=== PATIENT | male | born 2000 | race Caucasian/White ===

== ENCOUNTER 2022-07-20 20:38 | Outpatient (CLI) | payer OTHER | END 2022-07-20 23:59 | disposition critical access hospital (66) | LOC: EMS 20:38 | DX: R53.1 Weakness (principal); R11.2 Nausea with vomiting, unspecified; T46.4X2A Poisoning by angiotensin-converting-enzyme inhibitors, intentional self-harm, initial encounter | CPT/HCPCS: A0425; A0427 ==

== ENCOUNTER 2022-07-20 20:58 | Emergency (ER) | payer OTHER ==
[2022-07-20] MEDS ORDERED: SODIUM CHLORIDE 0.9% 1,000 ML IV STA (21:08)
--- NOTE | 2022-07-20 21:11 | ED Physician Documentation ---
History of Present Illness - Stated complaint Stated Complaint: OD - History obtained from History obtained from: Patient, EMS - Additonal information Additional information: 22yM with ph adhd, Polycystic kidney disease, presents with attempted overdose at 8 PM tonight of 78 tablets of 10 mg lisinopril. On EMS arrival patient was vomiting and had SBP in the 70s with heart rate in the 50s. He responded to 500 ucg Epinephrine and 500 L of IV fluids with resolution of hypotension en route. on arrival to ed patient states he doesn't want to live. when asked if he was trying to kill himself he states "I guess". contracts for safety in the ED. denies HI/AVH. Note patient states he missed an appointment this morning for mental health and voices concerns about this. He has outpatient mental health appointment this wednesday with to discuss starting antidepressant. PD PAST MEDICAL HISTORY - Present Medications Home Medications: Ambulatory Orders Medication Instructions Recorded Confirmed Lisinopril [Zestril] 10 mg ORAL 1-2XD 07/20/22 07/20/22 - Allergies Allergies/Adverse Reactions: Allergies Allergy/AdvReac Type Severity Reaction Status Date / Time No Known Drug Allergies Allergy Verified 07/20/22 21:18 PD ED PE NORMAL - Vitals Vital signs reviewed: Yes - General General: Alert and oriented X 3, No acute distress, Well developed/nourished - HEENT HEENT: Atraumatic, PERRL, EOMI - Neck Neck: Supple, no meningeal sign - Cardiac Cardiac: RRR - Respiratory Respiratory: No respiratory distress, Clear bilaterally - Abdomen Abdomen: Non tender, Non distended - Derm Derm: Normal color, Warm and dry Results - Vitals Vitals: Vital Signs - 24 hr 07/20/22 07/20/22 07/20/22 21:03 21:19 21:33 Temperature 36.8 C Heart Rate 72 73 69 Respiratory 18 18 20 Rate Blood Pressure 153/89 H 153/89 H 132/83 H O2 Saturation 100 100 100 07/20/22 07/20/22 07/20/22 21:46 22:14 22:30 Temperature Heart Rate 67 69 74 Respiratory 12 12 14 Rate Blood Pressure 132/81 H 135/93 H 156/94 H O2 Saturation 100 100 100 07/20/22 07/20/22 07/21/22 23:06 23:30 00:00 Temperature Heart Rate 69 71 63 Respiratory 17 18 16 Rate Blood Pressure 142/96 H 154/85 H 129/61 O2 Saturation 100 97 97 07/21/22 07/21/22 07/21/22 00:30 01:00 02:00 Temperature Heart Rate 60 68 55 L Respiratory 16 20 16 Rate Blood Pressure 127/71 126/69 122/61 O2 Saturation 96 98 98 07/21/22 07/21/22 07/21/22 02:30 03:00 03:30 Temperature Heart Rate 54 L 50 L 50 L Respiratory 16 16 16 Rate Blood Pressure 126/72 119/67 120/67 O2 Saturation 98 99 99 07/21/22 07/21/22 07/21/22 04:00 04:30 05:00 Temperature Heart Rate 51 L 50 L 51 L Respiratory 16 18 16 Rate Blood Pressure 125/64 125/64 120/61 O2 Saturation 98 98 99 07/21/22 07/21/22 07/21/22 05:30 06:00 06:30 Temperature Heart Rate 51 L 51 L 63 Respiratory 16 16 16 Rate Blood Pressure 120/69 117/60 123/77 O2 Saturation 99 98 98 Oxygen O2 Source Room air - Labs Labs: Laboratory Tests 07/20/22 07/20/22 07/20/22 21:02 21:02 21:02 WBC 7.1 RBC 5.00 Hgb 14.9 Hct 43.6 MCV 87.2 MCH 29.8 MCHC 34.2 RDW 12.8 Plt Count 213 MPV 11.0 Neut # (Auto) 3.9 Lymph # (Auto) 2.4 Stanley # (Auto) 0.3 Eos # (Auto) 0.4 Baso # (Auto) 0.1 Absolute Nucleated RBC 0.00 Nucleated RBC % 0.0 Sodium 139 Potassium 3.2 L Chloride 106 Carbon Dioxide 26 Anion Gap 7.0 BUN 14 Creatinine 1.0 Estimated GFR (MDRD) 94 Glucose 138 H Calcium 8.4 L Total Bilirubin 1.3 H AST 15 ALT 12 Alkaline Phosphatase 49 Total Protein 7.0 Albumin 4.0 Globulin 3.0 Albumin/Globulin Ratio 1.3 Lipase 25 TSH 2.27 Urine Color Urine Clarity Urine pH Ur Specific [place] Urine Protein Urine Glucose (UA) Urine Ketones Urine Occult Blood Urine Nitrite Urine Bilirubin Urine Urobilinogen Ur Leukocyte Esterase Urine RBC Urine WBC Ur Squamous Epith Cells Urine Bacteria Ur Microscopic Review Urine Culture Comments Salicylates < 6.0 Urine Opiates Screen Ur Oxycodone Screen Urine Methadone Screen Ur Propoxyphene Screen Acetaminophen < 10 L Ur Barbiturates Screen Ur Tricyclics Screen Ur Phencyclidine Scrn Ur Amphetamine Screen U Methamphetamines Scrn U Benzodiazepines Scrn Urine Cocaine Screen U Cannabinoids Screen Ethyl Alcohol < 5.0 SARS-CoV-2 (PCR) 07/20/22 07/20/22 21:20 21:33 WBC RBC Hgb Hct MCV MCH MCHC RDW Plt Count MPV Neut # (Auto) Lymph # (Auto) Stanley # (Auto) Eos # (Auto) Baso # (Auto) Absolute Nucleated RBC Nucleated RBC % Sodium Potassium Chloride Carbon Dioxide Anion Gap BUN Creatinine Estimated GFR (MDRD) Glucose Calcium Total Bilirubin AST ALT Alkaline Phosphatase Total Protein Albumin Globulin Albumin/Globulin Ratio Lipase TSH Urine Color YELLOW Urine Clarity CLEAR Urine pH 7.0 Ur Specific [place] 1.015 Urine Protein 100 H Urine Glucose (UA) NEGATIVE Urine Ketones NEGATIVE Urine Occult Blood TRACE-INTA Urine Nitrite NEGATIVE Urine Bilirubin NEGATIVE Urine Urobilinogen 1 (NORMAL) Ur Leukocyte Esterase NEGATIVE Urine RBC 6-10 H Urine WBC 0-3 Ur Squamous Epith Cells RARE Squamous Urine Bacteria None Seen Ur Microscopic Review INDICATED Urine Culture Comments NOT INDICATED Salicylates Urine Opiates Screen NEGATIVE Ur Oxycodone Screen NEGATIVE Urine Methadone Screen NEGATIVE Ur Propoxyphene Screen NEGATIVE Acetaminophen Ur Barbiturates Screen NEGATIVE Ur Tricyclics Screen NEGATIVE Ur Phencyclidine Scrn NEGATIVE Ur Amphetamine Screen NEGATIVE U Methamphetamines Scrn NEGATIVE U Benzodiazepines Scrn NEGATIVE Urine Cocaine Screen NEGATIVE U Cannabinoids Screen NEGATIVE Ethyl Alcohol SARS-CoV-2 (PCR) NOT DETECTED PD Medical Decision Making - ED course ED course: 22-year-old man presents with attempted overdose with lisinopril. He is showing no signs of hypotension here in the emergency department. We will continue his fluids and order mental health eval lab work. He will need to stay for social work after 6-hour observation period is completed. patient endorsed to my colleague Dr. Bansal at 7am shift change. Departure - Departure Clinical Impression: Suicidal ideation, Intentional overdose
[2022-07-20 21:16] LABS: BASOPHILS # (AUTO) 0.1 10^3/uL (0.0-0.1); BASOPHILS % (AUTO) 0.8 %; EOSINOPHILS # (AUTO) 0.4 10^3/uL (0.0-0.7); EOSINOPHILS % (AUTO) 6.2 %; HCT - HEMATOCRIT 43.6 % (42.0-52.0); HGB - HEMOGLOBIN 14.9 g/dL (14.0-18.0); LYMPHOCYTES # (AUTO) 2.4 10^3/uL (1.5-3.5); LYMPHOCYTES % (AUTO) 33.7 %; MEAN CORPUSCULAR HEMOGLOBIN 29.8 pg (27.0-31.0); MEAN CORPUSCULAR HGB CONC 34.2 g/dL (32.0-36.0); MEAN CORPUSCULAR VOLUME 87.2 fL (80.0-94.0); MONOCYTES # (AUTO) 0.3 10^3/uL (0.0-1.0); MONOCYTES % (AUTO) 4.5 %; NEUTROPHILS # (AUTO) 3.9 10^3/uL (1.5-6.6); NEUTROPHILS % (AUTO) 54.4 %; PLT - PLATELET COUNT 213 10^3/uL (130-450); RED CELL DISTRIBUTION WIDTH 12.8 % (12.0-15.0); WHITE BLOOD COUNT 7.1 x10^3/uL (4.8-10.8)
[2022-07-20 21:27] LABS: MUDS CUTOFF CONCENTRATIONS CUTOFF CONC BELOW:
[2022-07-20 21:27] LABS: ACETAMINOPHEN < 10 ug/mL (10-30); ALBUMIN/GLOBULIN RATIO 1.3 (1.0-2.2); ALKALINE PHOSPHATASE 49 IU/L (42-121); ALT ALANINE AMINOTRANSFERASE 12 IU/L (10-60); AST ASPARTATE AMINOTRANSFERASE 15 IU/L (10-42); BILIRUBIN,TOTAL 1.3 mg/dL (0.2-1.0); BUN - BLOOD UREA NITROGEN 14 mg/dL (6-20); CALCIUM 8.4 mg/dL (8.5-10.3); CARBON DIOXIDE - CO2 26 mmol/L (21-32); CHLORIDE 106 mmol/L (101-111); ETOH - ETHANOL < 5.0 mg/dL; GFR - MDRD 94 (>89); GLUCOSE 138 mg/dL (70-100); LIPASE 25 U/L (22-51); POTASSIUM 3.2 mmol/L (3.5-5.0); SALICYLATE < 6.0 mg/dL; SODIUM 139 mmol/L (135-145)
[2022-07-20 21:32] LABS: BILIRUBIN,URINE NEGATIVE (NEGATIVE); GLUCOSE, URINE (UA) NEGATIVE (NEGATIVE); KETONES,URINE (UA) NEGATIVE (NEGATIVE); LEUKOCYTE ESTERASE, URINE NEGATIVE (NEGATIVE); NITRITE,URINE NEGATIVE (NEGATIVE); OCCULT BLOOD,URINE TRACE-INTA (NEGATIVE); PROTEIN,URINE 100 mg/dL (NEGATIVE); UROBILINOGEN,URINE 1 (NORMAL) E.U./dL (NORMAL)
[2022-07-20 22:00] LABS: CLARITY,URINE CLEAR (CLEAR)
[2022-07-20 22:01] LABS: AMPHETAMINE SCREEN,URINE NEGATIVE (NEGATIVE); BARBITURATE SCREEN,UR NEGATIVE (NEGATIVE); BENZODIAZEPINES SCREEN, URINE NEGATIVE (NEGATIVE); COCAINE SCREEN URINE NEGATIVE (NEGATIVE); METHADONE SCREEN, URINE NEGATIVE (NEGATIVE); METHAMPHETAMINES SCREEN, URINE NEGATIVE (NEGATIVE); OPIATE SCREEN, URINE NEGATIVE (NEGATIVE); OXYCODONE SCREEN, URINE NEGATIVE (NEGATIVE); PROPOXYPHENE SCREEN, URINE NEGATIVE (NEGATIVE); THC CANNABINOID SCREEN, URINE NEGATIVE (NEGATIVE); TRICYCLIC ANTIDEPRESSANT,URINE NEGATIVE (NEGATIVE)
[2022-07-20 22:08] LABS: WBC,URINE 0-3 /HPF (0-3)
[2022-07-20 22:09] LABS: BACTERIA,URINE None Seen /HPF (None Seen); SQUAMOUS EPITHELIAL CELL,UR RARE Squamous (<= Few)
--- NOTE | 2022-07-21 11:49 | ED Physician Documentation ---
ED Addendum - Addendum Addendum: 07/21/22 11:48 The patient has been here since overnight. He is medically stable with normal heart rate and blood pressure. No other lightheadedness nor nausea or vomiting after initial arrival. He has been watched on his blood pressure and heart rhythm long enough to be confident that he is medically cleared from the lisinopril overdose. I asked him if he was still feeling that he would want to hurt himself. He said "I do not know" and mostly was anxious about "I just want to get out of here". Given that level of interaction even though it was commonly said and not belligerently, I still feel uncomfortable with safety planning for him. At this point it feels best that we talk with the psychiatric provider. He is is listed so we can talk with [facility] and see if he would be appropriate for inpatient care initially.
[2022-07-21 17:28] VITALS: BP 147/84
== END 2022-07-21 17:45 ==
LOC: ED 20:58
DX: T46.4X2A Poisoning by angiotensin-converting-enzyme inhibitors, intentional self-harm, initial encounter (principal); F32.A Depression, unspecified; Z20.822 Contact with and (suspected) exposure to COVID-19; Z79.899 Other long term (current) drug therapy
CPT/HCPCS: 36415; 80053; 80306; 80307; 80320; 80329; 81001; 81003; 83690; 84443; 85025; 87086; 99285